=== PATIENT | female | born 1985 | race American Indian/Alaskan Native ===

== ENCOUNTER 2020-04-01 10:13 | Day surgery (SDC) | payer MEDICAID ==
[~2020-04-01 10:13] MED LIST: ceFAZolin/STERILE WATER 2 GM/20 ML SYRINGE IV NR
[2020-04-01] MEDS ORDERED: BUPIVACAINE/PF (0.5%) 5 MG/1 ML 30 ML VIAL INFILTRATI ONE ×2 (11:13→11:47)
[2020-04-01] MEDS ORDERED: LIDOCAINE (1%) 10 MG/1 ML VIAL 20 ML MDV ONE (11:13)
[2020-04-01] MEDS ORDERED: LIDOCAINE (1%) 10 MG/1 ML VIAL 20 ML MDV INFILTRATI ONE (11:48)
--- NOTE | 2020-04-01 12:21 | Short Stay Summary ---
Short Stay Documentation Date of service: 04/01/20 - History Principal diagnosis: soft tissue mass left arm H&P: obtained from office - Allergies and Medications Current Medications: Allergies No Known Allergies Allergy (Verified 03/31/20 12:42) Home Medications Medication Instructions Recorded Confirmed Last Taken Type No Known Home Medications [No 03/31/20 03/31/20 Unknown History Reported Home Medications] Active Medications Cefazolin Sodium (Cefazolin/Sterile Water 2 Gm/20 Ml Syringe) 2 gm IV PREOP NR Stop: 04/01/20 20:00 - Brief post op/procedure progress note Date of procedure: 04/01/20 Pre-op diagnosis: soft tissue mass left arm Post-op diagnosis: other (cyst of left elbow) Procedure: excision cyst of left elbow Anesthesia: local Findings: 3.5 cm cyst of left elbow, chronically thickened wall Surgeon: NATHANIEL WORKMAN Estimated blood loss: minimal Pathology: list (cyst of left elbow) Specimen disposition: to lab Condition: stable - Hospital course Hospital course: Pt VS monitored and she was discharged to home in stable condition - Disposition Condition at discharge: Good Disposition: DC-01 TO HOME OR SELFCARE Short Stay Discharge Plan Activity: other (no heavy lifting for 1 week) Diet: regular Wound: other (May remove dressing tomorrow. Shower and pat incision dry, do not scrub. Reapply jace wrap) Follow up with: PRIMARY CARE, [Primary Care Provider] - 7 Days NATHANIEL WORKMAN DO [Staff Physician] - 14 Days Prescriptions: Acetaminophen/Codeine [Tylenol /Codeine # 3 tab] 1 tab PO Q6H PRN #15 tab PRN Reason: Pain , Severe (7-10)
--- NOTE | 2020-04-01 14:02 | Procedure Note ---
Date of procedure: 04/01/20 Pre-op diagnosis: soft tissue mass left arm Post-op diagnosis: other (cyst of left elbow) Procedure: excision cyst of left elbow Findings: Indication: Patient is a 34-year-old female who presented to the office for a workup of a soft tissue mass of the left elbow region which has been growing in size. It was recommended that the patient undergo elective excision and she was agreeable. After all risks, benefits, alternatives were discussed and questions answered, consent was signed in the office. Procedure in detail: Patient was identified in the preoperative area, taken back to the procedure room on a stretcher. She was kept in supine position and the left arm was propped up on a pillow. The left arm was prepped and draped in the usual sterile fashion and a timeout performed. Local anesthetic was injected into the skin at the intended incision site. A longitudinal incision was made over the soft tissue mass using 15 blade. Dissection was carried down through the subcutaneous tissue using electrocautery. Soft tissue mass was encountered and circumferentially freed from the surrounding tissue using a combination of blunt dissection and sharp dissection with iris scissors. During the dissection the mass was entered and there was semisolid material evacuated from the lesion consistent with that of a cyst. The wall was chronically thickened. The cyst wall was carefully dissected away from the surrounding tissue circumferentially. Once normal fatty tissue was identified the cyst wall in its entirety was removed from the subcutaneous tissue using Bovie electrocautery. This was then passed off the table as a specimen. It was measured at 3.5 cm in the longest dimension. The wound was then irrigated and hemostasis achieved with electrocautery. Once hemostasis was ensured, the deep dermal layer was closed using interrupted 3-0 Vicryl sutures. The skin was closed with 4-0 Monocryl subcuticular running stitche and skin glue. After the skin wound was dry, a piece of 4 x 4 gauze was placed over the incision and the elbow wrapped with a 3 inch Vincent wrap. At the end of the case, all sponge, instrument, sharp counts were correct 2. The patient's vital signs remained stable and she was discharged home in stable condition. Anesthesia: local Surgeon: NATHANIEL WORKMAN Estimated blood loss: minimal Pathology: list ((cyst of left elbow)) Condition: other (Pt VS monitored and she was discharged to home in stable condition) Disposition: other (HOME)
[2020-04-03 10:42] VITALS: BP 131/63
== END 2020-04-01 10:14 | disposition home or self-care (01) ==
LOC: OR 10:13
PROVIDERS: ATTEND Surgery
DX: M79.89 Other specified soft tissue disorders (principal); L72.0 Epidermal cyst; F17.210 Nicotine dependence, cigarettes, uncomplicated; Z87.440 Personal history of urinary (tract) infections; Z79.899 Other long term (current) drug therapy; Z98.890 Other specified postprocedural states
CPT/HCPCS: 88304

== ENCOUNTER 2021-05-17 14:01 | Emergency (ER) | payer MEDICAID ==
[2021-05-17] MEDS ORDERED: ASPIRIN 325 MG TAB PO ONE (14:44)
[2021-05-17] MEDS ORDERED: ACETAMINOPHEN 500 MG TAB PO ONE (15:15)
[2021-05-17] MEDS ORDERED: PANTOPRAZOLE 40 MG INJ IV ONE (15:15)
[2021-05-17] MEDS ORDERED: MORPHINE 4 MG/1 ML INJ IV ONE (15:15)
--- NOTE | 2021-05-17 15:21 | XRay Report ---
CHEST 2 VIEWS INDICATION / CLINICAL INFORMATION: CHEST PAIN TODAY. COMPARISON: None available. FINDINGS: SUPPORT DEVICES: None. HEART / MEDIASTINUM: No significant abnormality. LUNGS / PLEURA: No significant pulmonary or pleural abnormality. No pneumothorax. ADDITIONAL FINDINGS: No significant additional findings. IMPRESSION: 1. No acute findings. Signer Name: Corey Velasco MD Signed: 05/17/2021 3:17 PM Workstation Name: [id number]
[2021-05-17 15:26] LABS: Alanine Aminotransferase 12 units/L (7-56); Albumin 4.6 g/dL (3.9-5); BUN/Creatinine Ratio 10; Blood Urea Nitrogen 8 mg/dL (7-17); Calcium 8.9 mg/dL (8.4-10.2); Hemolysis Index 61
--- NOTE | 2021-05-17 15:40 | Emergency Department Report ---
ED Chest Pain HPI - General Chief Complaint: Chest Pain Stated Complaint: CP Time Seen by Provider: 05/17/21 15:01 Source: patient, RN notes reviewed Mode of arrival: Ambulatory Limitations: No Limitations - History of Present Illness Initial Comments: During the history and physical examination I am chaperoned by nurse Beba Brumfield The patient is a 35-year-old female who is right-hand dominant, who is not and has not limited given in the past 6 weeks, who currently is on Mirena ring for control, presenting to the ER today with a complaint of nontraumatic central bilateral anterior chest pain. The pain increases with palpation, range of motion. It decreases with rest. The patient denies travel, surgery, immobilization, DVT/PE risk factors, with the exception of her Mirena ring. Denies contributory family history, denies pertinent family history of ACS, DVT/PE risk factors. Denies additional pain and complaints at this time. MD Complaint: chest pain -: Gradual, days(s) (9:00 in the morning) Onset: during rest Pain Location: substernal, left chest, right chest Severity: moderate Quality: aching Consistency: constant Improves With: rest Worsens With: palpation, movement Aspirin use within the Past 7 Days: (0) No - Related Data On Oral Contraceptives: No Previous Rx's Medication Instructions Recorded Last Taken Type Acetaminophen [Non-Aspirin Extra 500 mg PO Q6HR PRN #30 tablet 05/17/21 Unknown Rx Strength] Famotidine [Pepcid] 20 mg PO BID #10 tablet 05/17/21 Unknown Rx Ibuprofen [Motrin] 400 mg PO Q8H PRN #30 tablet 05/17/21 Unknown Rx Allergies Allergy/AdvReac Type Severity Reaction Status Date / Time No Known Allergies Allergy Verified 03/31/20 12:42 Heart Score - HEART Score History: Slightly suspicious EKG: Normal Age: < 45 Risk factors: No known risk factors Troponin: < normal limit HEART Score: 0 - EKG Read Time Time EKG Completed: 14:19 EKG Read Time: 14:19 - Critical Actions Critical Actions: 0-3 pts:0.9-1.7%risk of adverse cardiac event.Candidate for discharge ED Review of Systems ROS: Stated complaint: CP Other details as noted in HPI Constitutional: denies: diaphoresis, fever, weakness Eyes: denies: eye discharge ENT: denies: epistaxis Respiratory: denies: wheezing Cardiovascular: chest pain Gastrointestinal: denies: abdominal pain, nausea, vomiting Neurological: denies: weakness Hematological/Lymphatic: denies: easy bleeding ED Past Medical Hx - Past Medical History Hx Hypertension: No Hx Congestive Heart Failure: No Hx Diabetes: No Hx Deep Vein Thrombosis: No Hx Renal Disease: No Hx Sickle Cell Disease: No Hx Seizures: No Hx Asthma: No Hx COPD: No Hx HIV: No - Social History Smoking Status: Former Smoker - Medications Home Medications: Home Medications Medication Instructions Recorded Confirmed Last Taken Type Acetaminophen [Non-Aspirin Extra 500 mg PO Q6HR PRN #30 tablet 05/17/21 Unknown Rx Strength] Famotidine [Pepcid] 20 mg PO BID #10 tablet 05/17/21 Unknown Rx Ibuprofen [Motrin] 400 mg PO Q8H PRN #30 tablet 05/17/21 Unknown Rx ED Physical Exam - General Limitations: No Limitations General appearance: alert, in no apparent distress - Head Head exam: Present: atraumatic, normocephalic - Eye Eye exam: Present: normal appearance, EOMI. Absent: nystagmus - ENT ENT exam: Present: normal exam, normal orophraynx, mucous membranes moist, no rmal external ear exam - Neck Neck exam: Present: normal inspection, full ROM. Absent: tenderness, meningismus - Respiratory Respiratory exam: Present: normal lung sounds bilaterally, other (Chaperoned by nurse Beba Buitrago). Absent: respiratory distress, wheezes, rales, rhonchi, stridor, chest wall tenderness - Cardiovascular Cardiovascular Exam: Present: normal rhythm, bradycardia, normal heart sounds. Absent: tachycardia, irregular rhythm, systolic murmur, diastolic murmur, rubs, gallop - GI/Abdominal GI/Abdominal exam: Present: soft. Absent: distended, tenderness, guarding, rebound, rigid, pulsatile mass - Extremities Exam Extremities exam: Present: normal inspection, full ROM, other (2+ pulses noted in the bilateral upper and lower extremities. There is no palpable cord. negative Homans sign. Muscular compartments are soft. The pelvis is stable.). Absent: pedal edema, calf tenderness - Back Exam Back exam: Present: normal inspection, full ROM. Absent: tenderness, CVA tenderness (R), CVA tenderness (L), paraspinal tenderness, vertebral tenderness - Neurological Exam Neurological exam: Present: alert, oriented X3, normal gait, other (No facial droop. Tongue midline. Extraocular movements intact bilaterally. Facial sensation intact to light touch in V1, V2, V3 distribution bilaterally. 5 and a 5 strength in 4 extremities. Sensation intact to light touch in 4 extremities.). Absent: motor sensory deficit - Psychiatric Psychiatric exam: Present: normal affect, normal mood - Skin Skin exam: Present: warm, dry, intact, normal color. Absent: rash ED Course Vital Signs 05/17/21 05/17/21 05/17/21 14:12 14:32 14:45 Temperature 99.3 F Pulse Rate 61 57 L 75 Respiratory 18 15 13 Rate Blood Pressure 153/105 150/96 O2 Sat by Pulse 100 Oximetry 05/17/21 05/17/21 05/17/21 15:11 15:15 15:31 Temperature Pulse Rate 72 57 L 56 L Respiratory 19 10 L Rate Blood Pressure 175/103 173/97 173/97 O2 Sat by Pulse 99 Oximetry 05/17/21 05/17/21 05/17/21 15:47 16:01 16:15 Temperature Pulse Rate 64 61 Respiratory 18 15 Rate Blood Pressure 173/97 178/114 178/114 O2 Sat by Pulse 99 98 99 Oximetry 05/17/21 05/17/21 05/17/21 16:31 16:45 17:05 Temperature Pulse Rate 57 L 57 L Respiratory 16 13 Rate Blood Pressure 158/105 158/105 102/54 O2 Sat by Pulse 98 99 Oximetry 05/17/21 05/17/21 05/17/21 17:27 17:55 18:01 Temperature Pulse Rate Respiratory Rate Blood Pressure 157/95 163/106 163/106 O2 Sat by Pulse 98 Oximetry 05/17/21 05/17/21 05/17/21 18:15 18:30 18:47 Temperature Pulse Rate Respiratory Rate Blood Pressure 163/106 154/97 O2 Sat by Pulse 98 98 100 Oximetry 05/17/21 19:01 Temperature Pulse Rate 63 Respiratory 11 L Rate Blood Pressure 162/106 O2 Sat by Pulse 99 Oximetry - Reevaluation(s) Reevaluation #1: 05/17/21 18:44 Differential diagnosis, including but not limited to: GERD, gastritis, hiatal hernia, pneumonia, costochondritis, acute coronary syndrome, Manera embolism Assessment and plan: 35-year-old female, troponin negative x2, EKG unchanged x2, chest x-ray unremarkable, low risk for major adverse cardiac event as per heart score, equal pulses in the upper and lower extremities, no pulsatile abdominal mass, unremarkable x-ray the chest, aortic disease is very unlikely. Patient is currently on control, and while not tachycardic, tachypneic or hypoxic, does not have alternative explanation for her chest pain. I do find the patient to be low pretest probability/low risk by Wells criteria for pulmonary embolism, but a D-dimer sent given her history of being on Mirena control, it is elevated, and therefore CT scan of the chest will be obtained. The patient's pain is treated aggressively. She is resting comfortably on her stretcher. Awaiting results of CT scan of the chest Reevaluation #2: 05/17/21 18:46 When I reassessed the patient, her blood pressure was improved, 105/70 mmHg. 05/17/21 19:07 CTA chest negative. Troponin negative x2. EKG unchanged x2. Appropriate to follow-up with outpatient cardiology or primary care to complete outpatient cardiac risk stratification JACOB score - Jacob Score Age > 65: (0) No Aspirin use within the Past 7 Days: (0) No 3 or more CAD Risk Factors: (0) No 2 or more Angina events in past 24 hrs: (0) No Known CAD with more than 50% Stenosis: (0) No Elevated Cardiac Markers: (0) No ST Deviation Greater than 0.5mm: (0) No JACOB Score: 0 ED Medical Decision Making - Lab Data Result diagrams: 05/17/21 16:52 05/17/21 14:50 Vital Signs 05/17/21 05/17/21 05/17/21 14:12 14:32 14:45 Temperature 99.3 F Pulse Rate 61 57 L 75 Respiratory 18 15 13 Rate Blood Pressure 153/105 150/96 O2 Sat by Pulse 100 Oximetry 05/17/21 05/17/21 15:11 15:15 Temperature Pulse Rate 72 57 L Respiratory 19 Rate Blood Pressure 175/103 173/97 O2 Sat by Pulse Oximetry Lab Results 05/17/21 05/17/21 05/17/21 Range/Units 14:50 15:00 16:52 WBC 3.7 L (4.5-11.0) K/mm3 RBC 5.31 H (3.65-5.03) M/mm3 Hgb 14.2 (10.1-14.3) gm/dl Hct 44.1 H (30.3-42.9) % MCV 83 (79-97) fl MCH 27 L (28-32) pg MCHC 32 (30-34) % RDW 14.6 (13.2-15.2) % Plt Count 200 (140-440) K/mm3 Lymph % (Auto) Manager Urology Add Manual Diff Complete Total Counted 100 Seg Neutrophils % Manager Urology Seg Neuts % (Manual) 51.0 (40.0-70.0) % Band Neutrophils % 0 % Lymphocytes % (Manual) 45.0 H (13.4-35.0) % Reactive Lymphs % (Man) 0 % Monocytes % (Manual) 3.0 (0.0-7.3) % Eosinophils % (Manual) 0 (0.0-4.3) % Basophils % (Manual) 1.0 (0.0-1.8) % Metamyelocytes % 0 % Myelocytes % 0 % Promyelocytes % 0 % Blast Cells % 0 % Nucleated RBC % Not Reportable Seg Neutrophils # Man 1.9 (1.8-7.7) K/mm3 Band Neutrophils # 0.0 K/mm3 Lymphocytes # (Manual) 1.7 (1.2-5.4) K/mm3 Abs React Lymphs (Man) 0.0 K/mm3 Monocytes # (Manual) 0.1 (0.0-0.8) K/mm3 Eosinophils # (Manual) 0.0 (0.0-0.4) K/mm3 Basophils # (Manual) 0.0 (0.0-0.1) K/mm3 Metamyelocytes # 0.0 K/mm3 Myelocytes # 0.0 K/mm3 Promyelocytes # 0.0 K/mm3 Blast Cells # 0.0 K/mm3 WBC Morphology Not Reportable Hypersegmented Neuts Not Reportable Hyposegmented Neuts Not Reportable Hypogranular Neuts Not Reportable Smudge Cells Not Reportable Toxic Granulation Not Reportable Toxic Vacuolation Not Reportable Dohle Bodies Not Reportable Pelger-Huet Anomaly Not Reportable Colby Rods Not Reportable Platelet Estimate Appears normal Clumped Platelets Not Reportable Plt Clumps, EDTA Not Reportable Large Platelets Not Reportable Giant Platelets Not Reportable Platelet Satelliting Not Reportable Plt Morphology Comment Not Reportable RBC Morphology Normal Dimorphic RBCs Not Reportable Polychromasia Not Reportable Hypochromasia Not Reportable Poikilocytosis Not Reportable Anisocytosis Not Reportable Microcytosis Not Reportable Macrocytosis Not Reportable Spherocytes Not Reportable Pappenheimer Bodies Not Reportable Sickle Cells Not Reportable Target Cells Not Reportable Tear Drop Cells Not Reportable Ovalocytes Not Reportable Helmet Cells Not Reportable Montes-Norphlet Bodies Not Reportable [place] Rings Not Reportable Dayanara Cells Not Reportable Bite Cells Not Reportable Crenated Cell Not Reportable Elliptocytes Not Reportable Acanthocytes (Spur) Not Reportable Rouleaux Not Reportable Hemoglobin C Crystals Not Reportable Schistocytes Not Reportable Malaria parasites Not Reportable Baljinder Bodies Not Reportable Hem Pathologist Commnt C PT 13.4 (12.2-14.9) Sec. INR 0.92 (0.87-1.13) D-Dimer 1162.17 H (0-234) ng/mlDDU Sodium 140 (137-145) mmol/L Potassium 4.5 (3.6-5.0) mmol/L Chloride 106.0 (98-107) mmol/L Carbon Dioxide 23 (22-30) mmol/L Anion Gap 16 mmol/L BUN 8 (7-17) mg/dL Creatinine 0.8 (0.6-1.2) mg/dL Estimated GFR > 60 ml/min BUN/Creatinine Ratio 10 % Glucose 101 H (65-100) mg/dL Calcium 8.9 (8.4-10.2) mg/dL Total Bilirubin 0.30 (0.1-1.2) mg/dL AST 18 (5-40) units/L ALT 12 (7-56) units/L Alkaline Phosphatase 70 (35-129) units/L Troponin T < 0.010 (0.00-0.029) ng/mL Total Protein 7.2 (6.3-8.2) g/dL Albumin 4.6 (3.9-5) g/dL Albumin/Globulin Ratio 1.8 % HCG, Quant (0-4) mIU/mL 05/17/21 05/17/21 Range/Units 16:52 16:52 WBC (4.5-11.0) K/mm3 RBC (3.65-5.03) M/mm3 Hgb (10.1-14.3) gm/dl Hct (30.3-42.9) % MCV (79-97) fl MCH (28-32) pg MCHC (30-34) % RDW (13.2-15.2) % Plt Count (140-440) K/mm3 Lymph % (Auto) Add Manual Diff Total Counted Seg Neutrophils % Seg Neuts % (Manual) (40.0-70.0) % Band Neutrophils % % Lymphocytes % (Manual) (13.4-35.0) % Reactive Lymphs % (Man) % Monocytes % (Manual) (0.0-7.3) % Eosinophils % (Manual) (0.0-4.3) % Basophils % (Manual) (0.0-1.8) % Metamyelocytes % % Myelocytes % % Promyelocytes % % Blast Cells % % Nucleated RBC % Seg Neutrophils # Man (1.8-7.7) K/mm3 Band Neutrophils # K/mm3 Lymphocytes # (Manual) (1.2-5.4) K/mm3 Abs React Lymphs (Man) K/mm3 Monocytes # (Manual) (0.0-0.8) K/mm3 Eosinophils # (Manual) (0.0-0.4) K/mm3 Basophils # (Manual) (0.0-0.1) K/mm3 Metamyelocytes # K/mm3 Myelocytes # K/mm3 Promyelocytes # K/mm3 Blast Cells # K/mm3 WBC Morphology Hypersegmented Neuts Hyposegmented Neuts Hypogranular Neuts Smudge Cells Toxic Granulation Toxic Vacuolation Dohle Bodies Pelger-Huet Anomaly Colby Rods Platelet Estimate Clumped Platelets Plt Clumps, EDTA Large Platelets Giant Platelets Platelet Satelliting Plt Morphology Comment RBC Morphology Dimorphic RBCs Polychromasia Hypochromasia Poikilocytosis Anisocytosis Microcytosis Macrocytosis Spherocytes Pappenheimer Bodies Sickle Cells Target Cells Tear Drop Cells Ovalocytes Helmet Cells Montes-Norphlet Bodies [place] Rings Dayanara Cells Bite Cells Crenated Cell Elliptocytes Acanthocytes (Spur) Rouleaux Hemoglobin C Crystals Schistocytes Malaria parasites Baljinder Bodies Hem Pathologist Commnt PT (12.2-14.9) Sec. INR (0.87-1.13) D-Dimer (0-234) ng/mlDDU Sodium (137-145) mmol/L Potassium (3.6-5.0) mmol/L Chloride (98-107) mmol/L Carbon Dioxide (22-30) mmol/L Anion Gap mmol/L BUN (7-17) mg/dL Creatinine (0.6-1.2) mg/dL Estimated GFR ml/min BUN/Creatinine Ratio % Glucose (65-100) mg/dL Calcium (8.4-10.2) mg/dL Total Bilirubin (0.1-1.2) mg/dL AST (5-40) units/L ALT (7-56) units/L Alkaline Phosphatase (35-129) units/L Troponin T < 0.010 (0.00-0.029) ng/mL Total Protein (6.3-8.2) g/dL Albumin (3.9-5) g/dL Albumin/Globulin Ratio % HCG, Quant < 2 (0-4) mIU/mL - EKG Data -: EKG Interpreted by Hi EKG shows normal: sinus rhythm Rate: normal - EKG Data When compared to previous EKG there are: previous EKG unavailable 05/17/21 18:43 EKG #1 is interpreted at 14: 19 Sinus rhythm, bradycardia, 56 bpm. Normal axis, normal intervals, minimal motion artifact. This is not a STEMI. EKG #2 is unchanged from prior. EKG #2 is interpreted at 17: 19 The EKG is not a STEMI. - Radiology Data Radiology results: pending, report reviewed, image reviewed CHEST 2 VIEWS INDICATION / CLINICAL INFORMATION: CHEST PAIN TODAY. COMPARISON: None available. FINDINGS: SUPPORT DEVICES: None. HEART / MEDIASTINUM: No significant abnormality. LUNGS / PLEURA: No significant pulmonary or pleural abnormality. No pneumothorax. ADDITIONAL FINDINGS: No significant additional findings. IMPRESSION: 1. No acute findings. Signer Name: Corey Velasco MD Signed: 05/17/2021 2:17 PM Workstation Name: [id number] CTA chest with contrast INDICATION : acute chest pain + d dimer. TECHNIQUE: Axial imaging performed through the chest, with contrast bolus timing set to maximize opacification of the pulmonary arteries. 3-plane MIP reformatted images were obtained. All CT scans at this location are performed using CT dose reduction for ALARA by means of automated exposure control. 100 mL of intra venous contrast administered. COMPARISON: None FINDINGS: Bolus/PTE: Contrast bolus timing is adequate. No filling defect is present to suggest PTE. Mediastinum: Heart and great vessels appear normal. No pathologic mediastinal adenopathy. Lungs: Lungs are clear. Upper abdomen: Limited imaging of the upper abdomen shows nothing acute. Bones: Degenerative changes in the spine with nothing acute. IMPRESSION: Negative for PTE. Clear lungs. Signer Name: Dariusz Balderas MD Signed: 05/17/2021 6:02 PM Workstation Name: [id number] Critical care attestation.: If time is entered above; I have spent that time in minutes in the direct care of this critically ill patient, excluding procedure time. ED Disposition Clinical Impression: Acute chest pain Disposition: HOME / SELF CARE / HOMELESS Is pt being admited?: No Does the pt Need Aspirin: No Condition: Good Instructions: Chest Pain (ED), Nonspecific Chest Pain, Adult Additional Instructions: EKG today was unremarkable and within normal limits x2. Troponin/blood test to screen for heart attack is negative x2. X-ray the chest is unremarkable. CT scan of the chest shows no evidence of pneumonia, blood clot in the lung or collapsed lung. Advance diet as tolerated, drink plenty of fluids, avoid consumption of heavy and spicy foods. Do not take Men-Phor medication for the next 2 days if patient takes this medication. Recommend follow-up with an outpatient maternal fetal physician within the next 3 to 4 days. Please return to the emergency room right away with new pain, worsened pain, migration of pain, projectile vomiting, change in mental status, confusion, inability tolerate liquid feeds, new, worsened or different symptoms not present on the initial emergency room evaluation Referrals: PRIMARY CARE, [Primary Care Provider] - 3-5 Days [facility] [Provider Group] - 3-5 Days [facility] [Provider Group] - 3-5 Days Forms: Work/School Release Form(ED)
[2021-05-17 15:52] LABS: INR 0.92 (0.87-1.13)
[2021-05-17 17:11] LABS: Hematocrit 44.1 % (30.3-42.9); Hemoglobin 14.2 gm/dl (10.1-14.3); Mean Corpuscular HGB Conc 32 % (30-34); Mean Corpuscular Volume 83 fl (79-97); Platelet Count 200 K/mm3 (140-440); Red Blood Count 5.31 M/mm3 (3.65-5.03); Red Cell Distribution Width 14.6 % (13.2-15.2)
[2021-05-17 18:05] LABS: Eosinophils % (Manual) 0 % (0.0-4.3); RBC Morphology Normal; Total Cells Counted 100
[2021-05-17] MEDS ORDERED: KETOROLAC 30 MG/1 ML INJ IV ONE (18:40)
--- NOTE | 2021-05-17 19:06 | Cat Scan Report ---
CTA chest with contrast INDICATION : acute chest pain + d dimer. TECHNIQUE: Axial imaging performed through the chest, with contrast bolus timing set to maximize opa cification of the pulmonary arteries. 3-plane MIP reformatted images were obtained. All CT scans at this location are performed using CT dose reduction for ALARA by means of automated exposure control. 100 mL of intravenous contrast administered. COMPARISON: None FINDINGS: Bolus/PTE: Contrast bolus timing is adequate. No filling defect is present to suggest PTE. Mediastinum: Heart and great vessels appear normal. No pathologic mediastinal adenopathy. Lungs: Lungs are clear. Upper abdomen: Limited imaging of the upper abdomen shows nothing acute. Bones: Degenerative changes in the spine with nothing acute. IMPRESSION: Negative for PTE. Clear lungs. Signer Name: Dariusz Balderas MD Signed: 05/17/2021 7:02 PM Workstation Name: [id number]
[2021-05-17 19:34] VITALS: BP 172/99
--- NOTE | 2021-05-18 11:08 | Electrocardiograph Report ---
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
--- NOTE | 2021-05-18 11:17 | Electrocardiograph Report ---
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 Electronically Signed On 05-18-2021 11:16:31 EDT by Khai Singh
== END 2021-05-17 19:33 | disposition home or self-care (01) ==
LOC: ED 14:01
DX: R07.89 Other chest pain (principal); Z87.891 Personal history of nicotine dependence
CPT/HCPCS: 36415; 71046; 71275; 80053; 84484; 84702; 85007; 85025; 85379; 85610; 93005; 96374; 96375; 99284; C9113; J1885; J2270; Q9967